=== PATIENT | male | born 1935 | race Caucasian/White ===

== ENCOUNTER 2021-05-03 08:36 | Inpatient (IN) | payer MEDICARE ==
[~2021-05-03] VITALS: Ht 175.3 cm; Wt 73.8 kg
[2021-05-03 10:05] LABS: LACTIC ACID 4.9 mmol/L (0.4-1.9)
[2021-05-03 10:07] LABS: IRON % SATURATION 2.3 %SAT (20-50)
[2021-05-03 10:12] LABS: BASOPHIL 0 % (0-2); EOSINOPHIL 0 % (0-7); HCT 23.8 % (42.0-52.0); HGB 6.7 g/dl (13.2-18.0); LYMPHOCYTE 8.9 % (15-48); MCH 21.3 pg (25.0-31.0); MCHC 28.2 g/dL (32.0-36.0); MCV 75.8 fL (78.0-100.0); MONOCYTE 3.2 % (0-12); MPV 11.3 fL (6.0-9.5); NEUTROPHIL 87.9 % (41-80); PLT 254 K/uL (150-400); RBC 3.14 M/uL (4.70-6.00); RDW 23.5 % (11.5-14.0); RETICULOCYTE COUNT 3.9 % (1.0-2.0)
[2021-05-03 10:18] LABS: PTT 35.1 SECONDS (24.4-34.7)
[2021-05-03 10:19] LABS: ALBUMIN 2.3 g/dL (3.4-5.0); BILIRUBIN - TOTAL 4.5 mg/dL (0.2-1.0); BUN/CREAT RATIO (CALC) 48.6 RATIO; CREATININE 1.07 mg/dL (0.67-1.17); FT4 (FREE T4) 0.6 ng/dL (0.76-1.46); GLOBULIN (CALCULATION) 2.2 g/dL; MAGNESIUM 2.4 mg/dL (1.8-2.4); POTASSIUM 3.4 mmol/L (3.5-5.1); TOTAL PROTEIN 4.5 g/dL (6.4-8.2)
[2021-05-03 10:33] LABS: PROTHROMBIN TIME 48.2 SECONDS (11.8-13.4)
[2021-05-03 10:35] LABS: INR 5.43 (0.9-1.2)
[2021-05-03 10:36] LABS: WBC 1.9 K/uL (4.0-10.5)
[2021-05-03 14:46] LABS: BILIRUBIN NEGATIVE (NEGATIVE); BLOOD 3+ Ery/uL (NEGATIVE); GLUCOSE (U) NORMAL (NORMAL); LEUKOCYTES NEGATIVE Leu/uL (NEGATIVE); NITRITE NEGATIVE (NEGATIVE); PROTEIN TRACE (LOW) mg/dL (NEGATIVE); SPECIFIC GRAVITY 1.025 (1.001-1.030); UROBILINOGEN 0.2 mg/dL (0.2-1.0)
[2021-05-03 14:52] LABS: CLARITY HAZY (CLEAR); COLOR AMBER (YELLOW)
[2021-05-03 14:53] LABS: AMORPHOUS URATES CRYSTALS TRACE; URINARY WBC RARE
[2021-05-03 22:02] LABS: HCT 26.9 % (42.0-52.0); HGB 8.2 g/dl (13.2-18.0); MCH 23.6 pg (25.0-31.0); MCHC 30.5 g/dL (32.0-36.0); MCV 77.5 fL (78.0-100.0); PLT 186 K/uL (150-400); RBC 3.47 M/uL (4.70-6.00); RDW 21.8 % (11.5-14.0)
[2021-05-03 22:06] LABS: WBC 3.4 K/uL (4.0-10.5)
[2021-05-03 22:11] LABS: GGT (GAMMA GT) 14 U/L (15-85); LDH 461 U/L (85-227)
[2021-05-04 05:45] LABS: BASOPHIL 0.3 % (0-2); EOSINOPHIL 0.3 % (0-7); HCT 25.6 % (42.0-52.0); HGB 7.7 g/dl (13.2-18.0); LYMPHOCYTE 1.9 % (15-48); MCH 23.5 pg (25.0-31.0); MCHC 30.1 g/dL (32.0-36.0); MONOCYTE 4.3 % (0-12); MPV 11.1 fL (6.0-9.5); NEUTROPHIL 91.2 % (41-80); NRBC 2.4; PLT 170 K/uL (150-400); RBC 3.28 M/uL (4.70-6.00); RDW 21.6 % (11.5-14.0)
[2021-05-04 05:55] LABS: INR 4.01 (0.9-1.2); PROTHROMBIN TIME 37.9 SECONDS (11.8-13.4)
[2021-05-04 06:16] LABS: ALBUMIN 2.6 g/dL (3.4-5.0); BILIRUBIN - DIRECT 1.8 mg/dL (0.00-0.20); BILIRUBIN - TOTAL 5.6 mg/dL (0.2-1.0); BUN/CREAT RATIO (CALC) 46.3 RATIO; CREATININE 1.08 mg/dL (0.67-1.17); PHOSPHORUS 4.3 mg/dL (2.6-4.7); POTASSIUM 3.5 mmol/L (3.5-5.1); TOTAL PROTEIN 4.6 g/dL (6.4-8.2)
[2021-05-05 07:00] LABS: INR 2.56 (0.9-1.2); PROTHROMBIN TIME 26.6 SECONDS (11.8-13.4)
[2021-05-05 07:03] LABS: BASOPHIL 0.1 % (0-2); EOSINOPHIL 0.1 % (0-7); HCT 24.2 % (42.0-52.0); HGB 7.3 g/dl (13.2-18.0); LYMPHOCYTE 2.8 % (15-48); MCH 23.5 pg (25.0-31.0); MCHC 30.2 g/dL (32.0-36.0); MCV 78.1 fL (78.0-100.0); MONOCYTE 9.2 % (0-12); MPV 11.4 fL (6.0-9.5); NEUTROPHIL 87.2 % (41-80); NRBC 0.7; PLT 106 K/uL (150-400); RDW 21.5 % (11.5-14.0)
[2021-05-05 07:39] LABS: ALBUMIN 2.5 g/dL (3.4-5.0); BILIRUBIN - DIRECT 1.6 mg/dL (0.00-0.20); BILIRUBIN - TOTAL 4.5 mg/dL (0.2-1.0); GLOBULIN (CALCULATION) 2.2 g/dL; POTASSIUM 3.1 mmol/L (3.5-5.1); TOTAL PROTEIN 4.7 g/dL (6.4-8.2)
--- NOTE | 2021-05-05 15:05 | NUR ---
05/05 Mr. Park was living alone. Will conducted further assessment if patient is not transferred.
--- NOTE | 2021-05-05 19:50 | NUR ---
1800 BED AVAILABLE AT [facility] IN [place]. [facility] CALLED TO [facility] [address]. AMBULANCE SERVICE CALLED. UNSURE OF ARRIVAL TIME.
--- NOTE | 2021-05-05 20:55 | NUR ---
2049- PT PICKED UP BY EMS FOR TRANSFER TO [facility]. [facility] 4 IC NOTIFIED. PATIENT BELONGINGS TAKEN BY SON.
== END 2021-05-05 20:50 | disposition other institution (70) | DRG 871 ==
LOC: FER 08:36 → FICU 13:36
PROVIDERS: Emergency Medicine; Nurse Practitioner; Nurse Practitioner Family; ADMIT Internal Medicine
PROC: 3E033XZ Introduction of Vasopressor into Peripheral Vein, Percutaneous Approach (ICD-10-PCS; principal; 2021-05-03)
PROC: 30233N1 Transfusion of Nonautologous Red Blood Cells into Peripheral Vein, Percutaneous Approach (ICD-10-PCS; 2021-05-03)
PROC: 02HV33Z Insertion of Infusion Device into Superior Vena Cava, Percutaneous Approach (ICD-10-PCS; 2021-05-04)
DX: A41.59 Other Gram-negative sepsis (principal); R65.21 Severe sepsis with septic shock; G93.41 Metabolic encephalopathy; I21.A1 Myocardial infarction type 2; M62.82 Rhabdomyolysis; K83.09 Other cholangitis; K80.11 Calculus of gallbladder with chronic cholecystitis with obstruction; Z20.822 Contact with and (suspected) exposure to COVID-19; S80.02XA Contusion of left knee, initial encounter; S89.91XA Unspecified injury of right lower leg, initial encounter; S79.912A Unspecified injury of left hip, initial encounter; W19.XXXA Unspecified fall, initial encounter; I48.91 Unspecified atrial fibrillation; I27.20 Pulmonary hypertension, unspecified; D64.9 Anemia, unspecified; R06.03 Acute respiratory distress; I10 Essential (primary) hypertension; M19.90 Unspecified osteoarthritis, unspecified site; Z86.718 Personal history of other venous thrombosis and embolism; Z85.828 Personal history of other malignant neoplasm of skin; Z98.890 Other specified postprocedural states; Z95.2 Presence of prosthetic heart valve; Z79.01 Long term (current) use of anticoagulants; Z79.82 Long term (current) use of aspirin; Z79.899 Other long term (current) drug therapy
CPT/HCPCS: 36415; 36430; 70450; 71045; 71250; 72125; 73502; 73560; 76705; 80053; 81001; 82248; 82550; 82728; 82962; 82977; 83036; 83540; 83550; 83605; 83615; 83690; 83735; 84100; 84145; 84439; 84443; 84484; 85025; 85610; 85730; 86850; 86900; 86901; 86922; 87040; 87077; 87088; 87186; 93005; 94640; C9113; J2543; J3370; J7030; P9016; P9046; P9047; U0002